=== PATIENT | female | born 1955 | race Asian ===

== ENCOUNTER 2016-07-10 16:00 | Outpatient (CLI) | payer OTHER ==
[~2016-07-10 16:00] MED LIST: ACET-309 PO; ACID REDUCER20 MG PO; ALLERCLEAR10 MG PO; AMBIEN5 MG PO; ASA LO-DOSE81 MG PO; ASCO500T18 PO; BUT/APAP/CA3 PO; CHLORTHALID25 MG PO; CLOPIDOGREL75 MG PO; DOCU100C10 PO; DULO60CA2 PO; DULOXETINE HCL30 MG PO; FLUT0.05 NAS; FURO40TA93 PO; GABA100C2 PO; GABA300C2 PO; HYDR25CA25 PO; HYDR25TA60 PO; INSU100P SC; KLOR-CON M2020 MEQ PO; LANTUS SOLOSTAR SC; LEVEMIR SC; LISI20TA11 PO; LORA0.5T17 PO; LORAZEPAM0.5 MG PO; LORCET 5-325 MG1 TAB PO; LOSA50TA PO; LYRICA75 MG PO; MAGNSUS68 PO; METOCLOPRAM10 MG OR; MULT VITAMI2 PO; NIFE10CA PO; ONDA2INJ2 PO; ONDA4TAB3; OXYC5TAB53 PO; PANT40TA PO; PEPCID20 MG OR; PLAVIX75 MG PO; POT CHLORIDE10 MEQ OR; PREDNISOLONE SODIUM PHOSPHATE 1% OPTH; PROMETHAZINE25 MG PO; PROTEINE1 PO; PROTONIX20 MG PO; RELIEF OR; ROCALTROL0.5 MCG PO; RYBIX ODT50 MG OR; SENNA1 TAB PO; SIMV40TA57 PO; TRAM50TA PO; VITAMIN B-12500 MC2 PO; VITAMIN D3400 UNI2 OR; VITAMIN D400 UNIT OR; WELCHOL625 MG OR; ZINC220 MG PO; ZIPR20CA PO; [UNRECOGNIZED DRUG - CODE] PO; [UNRECOGNIZED DRUG - OTHER] OR
== END 2016-07-10 19:35 | disposition home or self-care (01) ==
LOC: LAB 16:00
DX: I12.9 Hypertensive chronic kidney disease with stage 1 through stage 4 chronic kidney disease, or unspecified chronic kidney disease (principal); N18.5 Chronic kidney disease, stage 5; D63.1 Anemia in chronic kidney disease
CPT/HCPCS: 82728; 83540; 83550; 85014; 85018

== ENCOUNTER 2016-07-23 12:40 | Outpatient (CLI) | payer OTHER | END 2016-07-23 23:37 | disposition home or self-care (01) | LOC: LAB 12:40 | DX: I12.0 Hypertensive chronic kidney disease with stage 5 chronic kidney disease or end stage renal disease (principal); N18.5 Chronic kidney disease, stage 5; D63.1 Anemia in chronic kidney disease | CPT/HCPCS: 82728; 83540; 83550; 85014; 85018 ==

== ENCOUNTER 2016-08-06 14:27 | Outpatient (CLI) | payer OTHER | END 2016-08-06 20:38 | disposition home or self-care (01) | LOC: LAB 14:27 | DX: I12.9 Hypertensive chronic kidney disease with stage 1 through stage 4 chronic kidney disease, or unspecified chronic kidney disease (principal); N18.5 Chronic kidney disease, stage 5; D63.1 Anemia in chronic kidney disease | CPT/HCPCS: 82728; 83540; 83550; 85014; 85018 ==

== ENCOUNTER 2016-08-20 13:26 | Outpatient (CLI) | payer OTHER | END 2016-08-20 23:45 | disposition home or self-care (01) | LOC: LAB 13:26 | DX: I12.0 Hypertensive chronic kidney disease with stage 5 chronic kidney disease or end stage renal disease (principal); N18.5 Chronic kidney disease, stage 5; D63.1 Anemia in chronic kidney disease | CPT/HCPCS: 85014; 85018 ==

== ENCOUNTER 2016-09-03 11:00 | Outpatient (CLI) | payer OTHER | END 2016-09-03 19:42 | disposition home or self-care (01) | LOC: LAB 11:00 | DX: I12.0 Hypertensive chronic kidney disease with stage 5 chronic kidney disease or end stage renal disease (principal); N18.5 Chronic kidney disease, stage 5; D63.1 Anemia in chronic kidney disease | CPT/HCPCS: 85014; 85018 ==

== ENCOUNTER 2016-09-16 13:39 | Outpatient (CLI) | payer OTHER | END 2016-09-16 19:23 | disposition home or self-care (01) | LOC: LAB 13:39 | DX: I12.0 Hypertensive chronic kidney disease with stage 5 chronic kidney disease or end stage renal disease (principal); N18.5 Chronic kidney disease, stage 5; D63.1 Anemia in chronic kidney disease | CPT/HCPCS: 85014; 85018 ==

== ENCOUNTER 2016-09-23 15:40 | Outpatient (CLI) | payer OTHER | END 2016-09-23 19:32 | disposition home or self-care (01) | LOC: LAB 15:40 | DX: R79.89 Other specified abnormal findings of blood chemistry (principal) | CPT/HCPCS: 82728; 83540; 83550 ==

== ENCOUNTER 2016-10-05 11:56 | Outpatient (CLI) | payer OTHER | END 2016-10-05 19:06 | disposition home or self-care (01) | LOC: LAB 11:56 | DX: I12.0 Hypertensive chronic kidney disease with stage 5 chronic kidney disease or end stage renal disease (principal); N18.5 Chronic kidney disease, stage 5; D63.1 Anemia in chronic kidney disease | CPT/HCPCS: 82728; 83540; 83550; 85014; 85018 ==

== ENCOUNTER 2016-10-17 12:29 | Outpatient (CLI) | payer OTHER | END 2016-10-17 19:49 | disposition home or self-care (01) | LOC: LABW 12:29 | DX: I12.0 Hypertensive chronic kidney disease with stage 5 chronic kidney disease or end stage renal disease (principal); N18.5 Chronic kidney disease, stage 5; D63.1 Anemia in chronic kidney disease | CPT/HCPCS: 36415; 85014; 85018 ==

== ENCOUNTER 2016-10-31 13:58 | Outpatient (CLI) | payer OTHER | END 2016-10-31 15:00 | disposition home or self-care (01) | LOC: LAB 13:58 | DX: N18.5 Chronic kidney disease, stage 5 (principal); D63.1 Anemia in chronic kidney disease; I12.9 Hypertensive chronic kidney disease with stage 1 through stage 4 chronic kidney disease, or unspecified chronic kidney disease | CPT/HCPCS: 82310; 82728; 83540; 83550; 85014; 85018; 86039 ==

== ENCOUNTER 2016-11-20 08:36 | Outpatient (CLI) | payer OTHER ==
[2016-11-20 09:06] LABS: PLATELET COUNT 271 K/uL (152-353)
[2016-11-20 09:32] LABS: POTASSIUM 4.8 mmol/L (3.6-5.2)
== END 2016-11-20 19:20 | disposition home or self-care (01) ==
LOC: LABW 08:36
PROVIDERS: Internal Medicine
DX: Z00.01 Encounter for general adult medical examination with abnormal findings (principal); E11.9 Type 2 diabetes mellitus without complications; I12.0 Hypertensive chronic kidney disease with stage 5 chronic kidney disease or end stage renal disease; N18.5 Chronic kidney disease, stage 5; Z79.899 Other long term (current) drug therapy; Z51.81 Encounter for therapeutic drug level monitoring
CPT/HCPCS: 36415; 80053; 80061; 81000; 82043; 82306; 82570; 83036; 85027

== ENCOUNTER 2016-11-21 12:46 | Outpatient (CLI) | payer OTHER | END 2016-11-21 19:49 | disposition home or self-care (01) | LOC: LAB 12:46 | DX: D64.89 Other specified anemias (principal); R79.89 Other specified abnormal findings of blood chemistry | CPT/HCPCS: 82607; 82728; 83540 ==

== ENCOUNTER 2016-12-09 12:59 | Outpatient (CLI) | payer OTHER | END 2016-12-09 14:00 | disposition home or self-care (01) | LOC: LAB 12:59 | DX: I12.0 Hypertensive chronic kidney disease with stage 5 chronic kidney disease or end stage renal disease (principal); N18.5 Chronic kidney disease, stage 5; D63.1 Anemia in chronic kidney disease | CPT/HCPCS: 85014; 85018 ==

== ENCOUNTER 2016-12-24 10:48 | Outpatient (CLI) | payer OTHER | END 2016-12-24 11:50 | disposition home or self-care (01) | LOC: LAB 10:48 | DX: I12.0 Hypertensive chronic kidney disease with stage 5 chronic kidney disease or end stage renal disease (principal); N18.5 Chronic kidney disease, stage 5; D63.1 Anemia in chronic kidney disease | CPT/HCPCS: 85014; 85018 ==

== ENCOUNTER 2017-01-06 12:37 | Outpatient (CLI) | payer OTHER | END 2017-01-06 13:40 | disposition home or self-care (01) | LOC: LAB 12:37 | DX: I12.0 Hypertensive chronic kidney disease with stage 5 chronic kidney disease or end stage renal disease (principal); N18.5 Chronic kidney disease, stage 5; D63.1 Anemia in chronic kidney disease | CPT/HCPCS: 82728; 83540; 83550; 85014; 85018 ==

== ENCOUNTER 2017-01-21 13:00 | Outpatient (CLI) | payer OTHER | END 2017-01-21 14:00 | disposition home or self-care (01) | LOC: LAB 13:00 | DX: I12.0 Hypertensive chronic kidney disease with stage 5 chronic kidney disease or end stage renal disease (principal); N18.5 Chronic kidney disease, stage 5; D63.1 Anemia in chronic kidney disease | CPT/HCPCS: 85014; 85018 ==

== ENCOUNTER 2020-02-02 16:04 | Inpatient (IN) | payer OTHER | END 2020-02-29 12:21 | disposition still patient (30) | LOC: PAVB 16:04 | PROVIDERS: ADMIT Internal Medicine | CPT/HCPCS: 87635; U0003 ==

== ENCOUNTER 2020-02-03 05:10 | Outpatient (CLI) | payer OTHER | END 2020-02-03 20:03 | disposition home or self-care (01) | LOC: LAB 05:10 | DX: Z16.24 Resistance to multiple antibiotics (principal) | CPT/HCPCS: 87081 ==

== ENCOUNTER 2020-02-04 04:10 | Outpatient (CLI) | payer OTHER ==
[2020-02-04 08:12] LABS: POTASSIUM 4.4 mmol/L (3.6-5.2)
[2020-02-04 08:22] LABS: PLATELET COUNT 197 K/uL (152-353)
== END 2020-02-04 19:28 | disposition home or self-care (01) ==
LOC: LAB 04:10
PROVIDERS: Internal Medicine
DX: N18.5 Chronic kidney disease, stage 5 (principal); F51.01 Primary insomnia; Z51.81 Encounter for therapeutic drug level monitoring; I50.9 Heart failure, unspecified; E11.9 Type 2 diabetes mellitus without complications
CPT/HCPCS: 80053; 80061; 82306; 82607; 82728; 83036; 83540; 83880; 84443; 85027

== ENCOUNTER 2020-02-29 13:21 | Inpatient (IN) | payer OTHER | END 2020-03-30 11:08 | disposition still patient (30) | LOC: PAVB 13:21 | PROVIDERS: ADMIT Internal Medicine | CPT/HCPCS: 82272 ==

== ENCOUNTER 2020-03-09 14:24 | Outpatient (CLI) | payer OTHER | END 2020-03-09 23:16 | disposition home or self-care (01) | LOC: LAB 14:24 | DX: D64.89 Other specified anemias (principal) | CPT/HCPCS: 85014; 85018 ==

== ENCOUNTER 2020-03-16 17:44 | Outpatient (CLI) | payer OTHER | END 2020-03-16 23:43 | disposition home or self-care (01) | LOC: LAB 17:44 | DX: D64.89 Other specified anemias (principal) | CPT/HCPCS: 85014; 85018 ==

== ENCOUNTER 2020-03-28 11:20 | Outpatient (CLI) | payer OTHER | END 2020-03-28 19:36 | disposition home or self-care (01) | LOC: LAB 11:20 | DX: D64.89 Other specified anemias (principal) | CPT/HCPCS: 82272 ==

== ENCOUNTER 2020-03-29 07:05 | Outpatient (CLI) | payer OTHER | END 2020-03-29 19:01 | disposition home or self-care (01) | LOC: LAB 07:05 | DX: D64.89 Other specified anemias (principal) | CPT/HCPCS: 82272 ==

== ENCOUNTER 2020-03-30 14:04 | Inpatient (IN) | payer OTHER | END 2020-04-30 08:00 | disposition still patient (30) | LOC: PAVB 14:04 | PROVIDERS: ADMIT Internal Medicine ==

== ENCOUNTER 2020-04-13 14:20 | Outpatient (CLI) | payer OTHER | END 2020-04-13 22:18 | disposition home or self-care (01) | LOC: LAB 14:20 | DX: D64.89 Other specified anemias (principal) | CPT/HCPCS: 85014; 85018 ==

== ENCOUNTER 2020-04-30 09:00 | Inpatient (IN) | payer OTHER | END 2020-05-10 06:30 | disposition E | LOC: PAVB 09:00 | PROVIDERS: ADMIT Internal Medicine; ATTEND Internal Medicine ==

== ENCOUNTER 2020-05-05 00:05 | Emergency (ER) | payer OTHER ==
[~2020-05-05] VITALS: Ht 157.5 cm; Wt 54.0 kg
[2020-05-05 00:35] LABS: PLATELET COUNT 111 K/uL (152-353)
[2020-05-05 00:39] LABS: POTASSIUM 2.8 mmol/L (3.6-5.2)
[2020-05-05 01:55] VITALS: BP 128/56; TEMP 98.5
== END 2020-05-05 01:57 ==
LOC: ED 00:08
PROVIDERS: Emergency Medicine Emergency Medical Services
DX: E87.6 Hypokalemia (principal)
CPT/HCPCS: 80053; 85027; 87635; 99283; U0003

== ENCOUNTER 2020-05-05 12:28 | Outpatient (CLI) | payer OTHER | END 2020-05-05 19:12 | disposition home or self-care (01) | LOC: LAB 12:28 | DX: Z79.899 Other long term (current) drug therapy (principal) | CPT/HCPCS: 80164 ==